=== PATIENT | female | born 1965 | race Caucasian/White ===

== ENCOUNTER 2016-11-24 05:45 | Inpatient (IN) ==
[2016-11-24] MEDS ORDERED: SODIUM CHLORIDE 0.9% 100 ML IV ONE (05:58)
[2016-11-24] MEDS ORDERED: ceFAZolin 1,000 MG VIAL ONE (05:58)
[2016-11-24] MEDS ORDERED: VANCOMYCIN 1,000 MG VIAL ONE (05:58)
[2016-11-24] MEDS ORDERED: VANCOMYCIN INJ 1,000 MG in SODIUM CHLORIDE 0.9% 250 ML IV ONE (06:00)
[2016-11-24] MEDS ORDERED: PANTOPRAZOLE 40 MG TABLET PO ONE (06:23)
[2016-11-24] MEDS ORDERED: DIAZEPAM 5 MG TABLET PO ONE (06:23)
[2016-11-24] MEDS ORDERED: TRANEXAMIC ACID 1,000 MG/10 ML VIAL IV ONE (06:30)
[2016-11-24] MEDS ORDERED: FAMOTIDINE 20 MG TABLET ONE (06:37)
[2016-11-24] MEDS ORDERED: DIAZEPAM 5 MG TABLET ONE (06:37)
--- NOTE | 2016-11-24 07:08 | History and Physical Update ---
History and Physical Update - History and Physical H&P was reviewed, the patient examined and there: are no changes in the patients condition since last H&P was completed.
[2016-11-24] MEDS: LACTATED RINGERS 1,000 ML IV SCH ×2 (07:10→08:01)
[2016-11-24] MEDS ORDERED: PROPOFOL 500 MG/50 ML BOTTLE IV ONE (07:10)
[2016-11-24] MEDS ORDERED: ONDANSETRON 4 MG/2 ML VIAL ONE (07:10)
[2016-11-24] MEDS ORDERED: LIDOCAINE 1% 5 ML VIAL ONE (07:10)
[2016-11-24] MEDS ORDERED: PROPOFOL 200 MG/20 ML VIAL IV ONE (07:10)
[2016-11-24] MEDS ORDERED: methylPREDNISolone ACETATE 40 MG/1 ML VIAL ONE (07:13)
[2016-11-24] MEDS ORDERED: LACTULOSE 20 GM/30 ML UDCUP PO PRN (07:15)
[2016-11-24] MEDS ORDERED: BISACODYL 10 MG SUPP RECTAL PRN (07:15)
[2016-11-24] MEDS ORDERED: HYDROmorphone 2 MG/1 ML VIAL IV PRN (07:15)
[2016-11-24] MEDS ORDERED: PROMETHAZINE 25 MG/1 ML VIAL IM PRN (07:15)
[2016-11-24] MEDS ORDERED: diphenhydrAMINE CAP 25 MG CAPSULE PO PRN (07:15)
[2016-11-24] MEDS ORDERED: ROPIVACAINE 0.5% 30 ML VIAL ONE (09:02)
--- NOTE | 2016-11-24 09:19 | XRay Report ---
Referring Physician: Christopher Bucio Exam: XR knee 2V RT Date: November 24, 2016 at 8:53 AM Reason: Joint replacement right knee Comparison: None Findings: The patient is status post right total knee replacement. Position and alignment appear satisfactory. Surgical drains and surgical skin jaswinder are seen at the anterior aspect of the right knee, and there is soft tissue air, which is likely related to recent surgery. There may be tiny osseous fragments near the lateral tibial plateau and superior patella. Impression: The patient is status post right total knee replacement. Position and alignment appear satisfactory. PROCEDURE INTERPRETED AT [facility] DEPARTMENT OF RADIOLOGY Final Report Signed by: Dr. Phoebe Ji
[2016-11-24] MEDS ORDERED: MIDAZOLAM 2 MG/2 ML VIAL ONE (09:20)
[2016-11-24] MEDS ORDERED: SODIUM CHLORIDE 0.9% 200 ML IV ONE (09:20)
[2016-11-24] MEDS ORDERED: LACTATED RINGERS 1,000 ML IV ONE (09:20)
[2016-11-24] MEDS ORDERED: ACETAMINOPHEN 1,000 MG/100 ML VIAL IV ONE (09:20)
--- NOTE | 2016-11-24 09:37 | Anesthesia ---
Anesthesia Procedures - Nerve Blocks Nerve Block Consent: Requested by surgeon for postoperative pain control Main Anesthetic: spinal anesthesia block Location: PACU Position: supine Type of Block: Right: Femoral Patinet Consent: Patinet consented for above nerve block., Risks and benefits were discussed with patient,including infection,, bleeding,injury to surrounding structures, seizure, temporary nerve, Patient understands and accepts potential risks/benefits and agrees to, proceed. ASA Monitors on: pulse oximetry, EKG, BP cuff, oxygen via Local Anesthetic: Sterile technique with 2% Chlorhexidine / Betadine, Local (1.5 % Lidocaine) used to numb skin, 0.5% Ropivicaine, other Ultrasound Used to: Recognize Landmarks, Visualize Femoral Nerve Nerve Stimulator used: Yes Muscle Twitch: yes Inject slowly in 5cc increments with:: Negative aspitation of heme Patient vitals signs stable throughout procedure.: Patient tolertaed the procedure well with no apparent complications. (3.5 " stimuplex 22G needle used )
[2016-11-24] MEDS: HYDROmorphone PCA 30 MG/30 ML SYRINGE IV SCH (10:44)
[2016-11-24] MEDS: DOCUSATE SODIUM 100 MG CAPSULE PO SCH ×2 (10:48→21:02)
[2016-11-24] MEDS: PANTOPRAZOLE 40 MG TABLET PO SCH (10:48)
--- NOTE | 2016-11-24 11:05 | Anesthesia ---
Anesthesia Post OP - Post Ansesthetic Evaluation Patient seen in post op: Yes Resp: within normal limits CV: within normal limits Mental: within normal limits Temp: within normal limits Ioyo-Gu-Gnrtjrffg: within normal limits Nausea and Vomiting: within normal limits Pain: within normal limits
[2016-11-24 13:07] LABS: Basophils % 0.2 % (0.0-0.8); Eosinophils % 0.2 % (0.00-10.9); Hematocrit 39.3 VOL% (35.7-47.0); Immature Granulocytes % 0.5 %; Immature Granulocytes Absolute 0.05 #; Lymphocytes # 1.1 10*3/uL (1.4-4.0); Lymphocytes % 10.9 % (21.3-54.2); Mean Corpuscular HGB Conc 33.1 GM/DL (32-36); Mean Corpuscular Hemoglobin 30 PG (27-34); Mean Corpuscular Volume 90.1 FL (87-102); Monocytes # 0.2 10*3/uL (0.11-0.8); Monocytes % 2.4 % (1.7-12.7); Neutrophils # 8.7 10*3/uL (1.4-7.4); Neutrophils % 85.8 % (38.7-73.9); Platelet Count 174 10*3/uL (130-400); Red Blood Count 4.36 10*6/uL (3.8-5.5); Red Cell Distribution Width 13.2 % (9.3-17.3); White Blood Count 10.1 10*3/uL (4.5-13.71)
[2016-11-24 13:44] LABS: Calcium 8.5 MG/DL (8.5-10.1); Osmolality,Calculated 291.6 MOS/KG (273-304); Potassium 4.1 MMOL/L (3.5-5.1)
[2016-11-24] MEDS: ceFAZolin 2,000 MG in PREMIX 1 EACH IV SCH ×2 (13:57→21:01)
--- NOTE | 2016-11-24 15:54 | Orthopedic Progress Note ---
Orthopedics - Subjective Interval history: comfortable nvi discussed up in am Exam - Constitutional Vitals: Period Temp Pulse Resp BP Sys/Sun Pulse Ox Last 24 Hr 97.4 F-98.2 F 60-79 14-18 99-142/61-102 18-100 Results - Labs CBC & BMP: 11/24/16 12:54 11/24/16 12:54 Specialty Discharge - Follow Up or Referrals - Discharge Medications No Action Lansoprazole [Prevacid] 15 mg PO DAILY Naproxen Sodium [Aleve] 220 mg PO DIRECTED
[2016-11-24] MEDS: ONDANSETRON 4 MG/2 ML VIAL IV PRN (18:02)
[2016-11-24] MEDS: FONDAPARINUX 2.5 MG/0.5 ML SYRINGE SUBCUT SCH (18:05)
--- NOTE | 2016-11-24 18:15 | Operative Note ---
DATE: 11/24/2016 PREOPERATIVE DIAGNOSIS: OSTEOARTHRITIS, RIGHT KNEE. POSTOPERATIVE DIAGNOSIS: SAME. OPERATIVE PROCEDURES: 1. Right total knee replacement (Attune). 2. Cortisone injection, left knee. SURGEON: Christopher Bucio Jr., MD HELP DESK SUPPORT SPECIALIST: Dr. Francisco ANESTHESIA: Spinal. INDICATIONS: A 51-year-old white female with severe osteoarthritis involving her right knee; also, arthritis to the left side as well. She has maximized conservative treatments through the years inc luding previous arthroscopic procedures as well as injections. Her right knee pain and deformity ar e progressing to the point where she can no longer maintain an active lifestyle, work, etc. She pre sents today for elective right total knee. Under anesthesia she wishes to have her left knee inject ed. DESCRIPTION OF PROCEDURE: The patient taken to the operating room and under spinal anesthetic the l eft knee was injected first with a small amount of Lidocaine and 40 mg of Depo-Medrol to the medial compartment. A band-aid was applied. The right leg was then prepped and draped in the usual steril e manner. The limb was elevated, exsanguinated, and tourniquet inflated to 300 mmHg. A midline inc ision made over the anterior aspect of the right knee. Sharp dissection was carried down through th e skin and subcutaneous tissue, a median parapatellar arthrotomy performed. The knee revealing exte nsive tricompartmental degenerative changes, large osteophyte complexes throughout. Intramedullary alignment guides were used to make the appropriate cuts about the distal femur and proximal tibia. The femur sized to a 5, the tibia to a 4. An 8 mm fixed-bearing spacer selected, the PCL retained. The patella resurfaced with a 35 button. After removal of all the trial components, the knee was i rrigated and all [address]. After the cement hardened the wound was closed i n a standard fashion over two 1/8-inch Hemovac drains; #1 Vicryl was used for the arthrotomy, 2-0 Vi cryl for the subcutaneous layer, and jaswinder for skin. Sterile dressing applied. She was taken to the recovery room in stable condition. TOURNIQUET TIME: 44 minutes. DRAINS: x2. COUNTS: Correct.
[2016-11-24] MEDS: TEMAZEPAM 7.5 MG CAPSULE PO PRN (21:02)
[2016-11-25 05:31] LABS: Basophils % 0.1 % (0.0-0.8); Eosinophils % 0.2 % (0.00-10.9); Hematocrit 36.4 VOL% (35.7-47.0); Hemoglobin 11.9 GM/DL (12.0-16.0); Immature Granulocytes % 0.5 %; Immature Granulocytes Absolute 0.05 #; Lymphocytes # 1.5 10*3/uL (1.4-4.0); Lymphocytes % 15.4 % (21.3-54.2); Mean Corpuscular HGB Conc 32.7 GM/DL (32-36); Mean Corpuscular Hemoglobin 30 PG (27-34); Mean Corpuscular Volume 90.8 FL (87-102); Mean Platelet Volume 9.1 FL (9.6-12.0); Monocytes # 0.7 10*3/uL (0.11-0.8); Monocytes % 7.4 % (1.7-12.7); Neutrophils # 7.7 10*3/uL (1.4-7.4); Neutrophils % 76.4 % (38.7-73.9); Platelet Count 170 10*3/uL (130-400); Red Blood Count 4.01 10*6/uL (3.8-5.5); Red Cell Distribution Width 13.1 % (9.3-17.3)
[2016-11-25 06:09] LABS: Calcium 8.4 MG/DL (8.5-10.1); Osmolality,Calculated 289.6 MOS/KG (273-304); Potassium 4.3 MMOL/L (3.5-5.1)
[2016-11-25] MEDS: PANTOPRAZOLE 40 MG TABLET PO SCH (09:16)
[2016-11-25] MEDS: DOCUSATE SODIUM 100 MG CAPSULE PO SCH ×2 (09:16→21:08)
--- NOTE | 2016-11-25 09:32 | Orthopedic Progress Note ---
Orthopedics - Subjective Interval history: hct ok drain out cont pt Exam - Constitutional Vitals: Period Temp Pulse Resp BP Sys/Sun Pulse Ox Last 24 Hr 96.9 F-97.7 F 62-76 15-20 105-118/70-82 94-100 Results - Labs CBC & BMP: 11/25/16 05:15 11/25/16 05:15 Specialty Discharge - Follow Up or Referrals - Discharge Medications No Action Lansoprazole [Prevacid] 15 mg PO DAILY Naproxen Sodium [Aleve] 220 mg PO DIRECTED
[2016-11-25] MEDS: ONDANSETRON 4 MG/2 ML VIAL IV PRN (11:07)
--- NOTE | 2016-11-25 11:18 | Pathology Report from [facility] ---
ACCESSION # : [id number] PATIENT NAME : Jacqui Walters ORDERING DR : TIAGO MCKEON JR, MD CLINICAL HX: Bilateral knee osteoarthritis POST-OP DX: Same SPECIMEN INFO: Right knee bone and tissue GROSS DESCRIPTION: The speicmen received in formalin labeled "JACQUI WALTERS" is an aggregate of bone, soft tissue and cartilage measuring 14.0 x 5.5 cm. The articular surfaces are focally degenerative with areas of subchondral eburnation seen. Elementary Substitute Teacher sections submitted in one cassette. DIAGNOSIS FOR JACQUI WALTERS: RIGHT KNEE BONE & TISSUE: Gross and microscopic findings consistent with osteoarthritis. SERVICE DATE: 11/24/2016 REPORT DATE: 11/25/2016 PATHOLOGIST: Araseli Espinoza III, M.D. MTDD
[2016-11-25] MEDS: HYDROmorphone PCA 30 MG/30 ML SYRINGE IV SCH (11:33)
[2016-11-25] MEDS: FONDAPARINUX 2.5 MG/0.5 ML SYRINGE SUBCUT SCH (18:38)
[2016-11-25] MEDS: TEMAZEPAM 7.5 MG CAPSULE PO PRN (21:08)
[2016-11-26 06:23] LABS: Basophils % 0.2 % (0.0-0.8); Eosinophils # 0.1 10*3/uL (0.0-0.87); Eosinophils % 0.8 % (0.00-10.9); Hematocrit 35.4 VOL% (35.7-47.0); Hemoglobin 11.6 GM/DL (12.0-16.0); Immature Granulocytes % 0.7 %; Immature Granulocytes Absolute 0.06 #; Lymphocytes # 1.8 10*3/uL (1.4-4.0); Lymphocytes % 21.8 % (21.3-54.2); Mean Corpuscular HGB Conc 32.8 GM/DL (32-36); Mean Corpuscular Hemoglobin 30 PG (27-34); Mean Corpuscular Volume 90.3 FL (87-102); Mean Platelet Volume 9.5 FL (9.6-12.0); Monocytes # 0.8 10*3/uL (0.11-0.8); Monocytes % 9.9 % (1.7-12.7); Neutrophils # 5.5 10*3/uL (1.4-7.4); Neutrophils % 66.6 % (38.7-73.9); Platelet Count 167 10*3/uL (130-400); Red Blood Count 3.92 10*6/uL (3.8-5.5); Red Cell Distribution Width 13.3 % (9.3-17.3); White Blood Count 8.3 10*3/uL (4.5-13.71)
--- NOTE | 2016-11-26 07:32 | Orthopedic Progress Note ---
Orthopedics - Subjective Interval history: She is complaining of some nausea with the Dilaudid. It been stopped and she is tolerating oral analgesics well. Dressing is dry. Right lower extremity is neurovascularly unchanged. Plan: Continue physical therapy. Exam - Constitutional Vitals: Period Temp Pulse Resp BP Sys/Sun Pulse Ox Last 24 Hr 97.5 F-99.8 F 78-99 15-20 112-153/70-88 92-97 Results - Labs CBC & BMP: 11/26/16 05:51 11/25/16 05:15 Specialty Discharge - Follow Up or Referrals - Discharge Medications No Action Lansoprazole [Prevacid] 15 mg PO DAILY Naproxen Sodium [Aleve] 220 mg PO DIRECTED
[2016-11-26] MEDS: DOCUSATE SODIUM 100 MG CAPSULE PO SCH ×2 (10:17→20:32)
[2016-11-26] MEDS: PANTOPRAZOLE 40 MG TABLET PO SCH (10:17)
--- NOTE | 2016-11-26 12:58 | Family Practice Progress Note ---
Family Practice - PN: Subj Interval history: Courtesy consult for Mrs. Walters. I'll see him in the last several days and she's been doing well. She is ambulating the halls and she is been tolerating the pain. Her H&H is stable and has been eating well and voiding well. Not had a bowel movement yet but I'm going to give some milk of magnesia this afternoon if she doesn't have one. Vital signs are completely stable Exam (Progress Note) - Constitutional Vitals: Period Temp Pulse Resp BP Sys/Sun Pulse Ox Last 24 Hr 97.8 F-99.8 F 80-99 15-18 139-153/70-88 92-95 Results - Labs CBC & BMP: 11/26/16 05:51 11/25/16 05:15 Specialty Discharge - Follow Up or Referrals - Discharge Medications No Action Lansoprazole [Prevacid] 15 mg PO DAILY Naproxen Sodium [Aleve] 220 mg PO DIRECTED
[2016-11-26] MEDS: MAGNESIUM HYDROXIDE SUSP 30 ML UDCUP PO PRN (17:24)
[2016-11-26] MEDS: FONDAPARINUX 2.5 MG/0.5 ML SYRINGE SUBCUT SCH (17:25)
[2016-11-26] MEDS: TEMAZEPAM 7.5 MG CAPSULE PO PRN (20:32)
[2016-11-27 05:27] LABS: Basophils % 0.6 % (0.0-0.8); Eosinophils # 0.2 10*3/uL (0.0-0.87); Eosinophils % 2.4 % (0.00-10.9); Hematocrit 35.9 VOL% (35.7-47.0); Hemoglobin 11.4 GM/DL (12.0-16.0); Immature Granulocytes % 0.9 %; Immature Granulocytes Absolute 0.06 #; Lymphocytes # 2.6 10*3/uL (1.4-4.0); Lymphocytes % 37.9 % (21.3-54.2); Mean Corpuscular HGB Conc 31.8 GM/DL (32-36); Mean Corpuscular Hemoglobin 29 PG (27-34); Mean Corpuscular Volume 91.1 FL (87-102); Monocytes # 0.7 10*3/uL (0.11-0.8); Neutrophils # 3.4 10*3/uL (1.4-7.4); Neutrophils % 48.2 % (38.7-73.9); Platelet Count 184 10*3/uL (130-400); Red Blood Count 3.94 10*6/uL (3.8-5.5); Red Cell Distribution Width 13.2 % (9.3-17.3)
--- NOTE | 2016-11-27 07:37 | Orthopedic Progress Note ---
Orthopedics - Subjective Interval history: Ms. Walters continues to improve. She is concerned regarding discharge home because of limited family to take care of her. Dressing clean, dry and intact. Her right lower extremity is neurovascularly unchanged. Plan: Continue physical therapy. Discharge planning. Exam - Constitutional Vitals: Period Temp Pulse Resp BP Sys/Sun Pulse Ox Last 24 Hr 97.2 F-98.9 F 75-91 12-20 118-148/72-86 95-98 Results - Labs CBC & BMP: 11/27/16 05:10 11/25/16 05:15 Specialty Discharge - Follow Up or Referrals - Discharge Medications No Action Lansoprazole [Prevacid] 15 mg PO DAILY Naproxen Sodium [Aleve] 220 mg PO DIRECTED
[2016-11-27] MEDS: DOCUSATE SODIUM 100 MG CAPSULE PO SCH ×2 (08:33→20:45)
[2016-11-27] MEDS: PANTOPRAZOLE 40 MG TABLET PO SCH (08:33)
[2016-11-27] MEDS: MAGNESIUM HYDROXIDE SUSP 30 ML UDCUP PO PRN (10:30)
[2016-11-27] MEDS: FONDAPARINUX 2.5 MG/0.5 ML SYRINGE SUBCUT SCH (18:11)
--- NOTE | 2016-11-28 08:38 | Orthopedic Progress Note ---
Orthopedics - Subjective Interval history: Comfortable doing well. Planning on home discharge tomorrow with outpatient PT she is not interested in home health and home PT. Wound looks good no bleeding and home tomorrow Exam - Constitutional Vitals: Period Temp Pulse Resp BP Sys/Sun Pulse Ox Last 24 Hr 97.6 F-98.6 F 83-98 16-20 112-143/70-82 96-98 Results - Labs CBC & BMP: 11/27/16 05:10 11/25/16 05:15 Specialty Discharge - Follow Up or Referrals - Discharge Medications No Action Lansoprazole [Prevacid] 15 mg PO DAILY Naproxen Sodium [Aleve] 220 mg PO DIRECTED
--- NOTE | 2016-11-28 09:14 | Family Practice Progress Note ---
Family Practice - PN: Subj Interval history: Courtesy consult note on very pleasant lady who recently had knee replacement surgery. She is doing well, in very good spirits, eating well, good bowel movements, no difficulty with breathing and is been walking the halls with her walker. Leg is not swollen and is got good pulses in the dorsalis pedal and posterior tibial sites of the affected leg. Appreciate orthopedics management of this patient Exam (Progress Note) - Constitutional Vitals: Period Temp Pulse Resp BP Sys/Sun Pulse Ox Last 24 Hr 97.6 F-98.6 F 83-98 16-20 112-143/70-82 96-98 Exam: Generally well-developed is alert and oriented and very good spirits HEENT negative Lungs are clear Abdomen soft nondistended Extremities no swelling and wound site dressing in place Results - Labs CBC & BMP: 11/27/16 05:10 11/25/16 05:15 Specialty Discharge - Follow Up or Referrals - Discharge Medications No Action Lansoprazole [Prevacid] 15 mg PO DAILY Naproxen Sodium [Aleve] 220 mg PO DIRECTED
[2016-11-28] MEDS: PANTOPRAZOLE 40 MG TABLET PO SCH (09:42)
[2016-11-28] MEDS: DOCUSATE SODIUM 100 MG CAPSULE PO SCH ×2 (09:42→20:37)
--- NOTE | 2016-11-28 12:46 | Physician Query Form ---
CLICK EDIT DOCUMENT TO SELECT QUERY ANSWER --> OK --> SIGN No Figueroa RN, CCDS Certified Clinical Kiosk Sales Representative W) [phone] (f) [phone] [email or web address] PROVIDERS: Make your selection(s) from the choices in EACH section by typing an "x" and enter comments in the comment section. Please use your independent medical judgment in providing your response. This request does not imply that any particular answer is desired or expected. CLINICAL INDICATORS: (Providers should not edit this section) Height: 5'2 Weight: [address] Light Servicer Supervisor BMI: 40.5 Deburrer Machine Notes: Morbid obesity noted. Pt has had some weight loss through diet/portion control. Patient with osteoarthritis of right knee requiring right total knee replacement If applicable, please provide an associated diagnosis related to the abnormal BMI: BMI of 40 or greater: ( ) Overweight ( ) Obesity ( x ) Morbid//Severe Obesity ( ) Obesity with Alveolar Hypoventilation ( ) Weight Gain ( ) BMI is not significant ( ) Other, please specify: ( ) Clinically unable to determine COMMENTS: Use of terms such as suspected, likely, or probable (associated with a specific diagnosis that is being evaluated, monitored, or treated as if it exists) are acceptable and can be restated in the discharge summary if not ruled out. MTDD
[2016-11-28] MEDS: FONDAPARINUX 2.5 MG/0.5 ML SYRINGE SUBCUT SCH (17:27)
[2016-11-29 07:00] LABS: Calcium 8.6 MG/DL (8.5-10.1); Potassium 4.3 MMOL/L (3.5-5.1)
[2016-11-29] MEDS: FONDAPARINUX 2.5 MG/0.5 ML SYRINGE SUBCUT SCH (09:25)
[2016-11-29] MEDS: DOCUSATE SODIUM 100 MG CAPSULE PO SCH (09:25)
[2016-11-29] MEDS: PANTOPRAZOLE 40 MG TABLET PO SCH (09:25)
--- NOTE | 2016-11-29 09:43 | Orthopedic Progress Note ---
Orthopedics - Subjective Interval history: Doing well ready for discharge. Exam - Constitutional Vitals: Period Temp Pulse Resp BP Sys/Sun Pulse Ox Last 24 Hr 97.9 F-98.9 F 88-116 18-18 111-136/77-87 95-99 Results - Labs CBC & BMP: 11/27/16 05:10 11/29/16 05:47 Specialty Discharge - Follow Up or Referrals Follow up with: Christopher Bucio Jr., MD [Physician] - 12/09/16 12:00 pm - Discharge Medications No Action Lansoprazole [Prevacid] 15 mg PO DAILY Naproxen Sodium [Aleve] 220 mg PO DIRECTED
--- NOTE | 2016-11-29 09:47 | Discharge Summary ---
Hospital Course - Hospital Course Hospital Course: Admitted for elective right total knee. Uncomplicated course. Discharged home Diagnosis - Discharge Diagnosis (1) Osteoarthritis of right knee Status: Acute Specialty Discharge - Follow Up or Referrals Follow up with: Christopher Bucio Jr., MD [Physician] - 12/09/16 12:00 pm - Discharge Medications No Action Lansoprazole [Prevacid] 15 mg PO DAILY Naproxen Sodium [Aleve] 220 mg PO DIRECTED Discharge Plan - Discharge Data Disposition: Disch To Home/Self Care Condition at Discharge: Stable Discharge Diet: advance to your usual diet Activity: ambulate only with your walker, as per physical therapy Hygiene: may shower, keep area(s) dry Weight Bearing at Discharge: weight bear as tolerated Driving: other (not while taking narcotic pain medicine) - Discharge Medications New HYDROcodone/ACETAMIN 7.5-325 [[place] 7.5-325] 1 tablet PO Q4H PRN #25 tablet PRN Reason: Pain Moderate (4-7) Continue Lansoprazole [Prevacid] 15 mg PO DAILY Naproxen Sodium [Aleve] 220 mg PO DIRECTED - Follow Up or Referral Follow Up: Christopher Bucio Jr., MD [Physician] - 12/09/16 12:00 pm - Forms/Instructions Additional Discharge Instructions: Discharge to home, discharge medications [place] when necessary aspirin once a day diet as tolerated activity total knee protocol weightbearing as tolerated home CPM walker. Outpatient PT Monday..., follow-up appointment with ct December 08 or . Exam - Constitutional Vitals: Period Temp Pulse Resp BP Sys/Sun Pulse Ox Last 24 Hr 97.9 F-98.9 F 88-116 18-18 111-136/77-87 95-99 Discharge Results Labs on day of discharge: Labs from last 24 hours 11/29/16 05:47 Sodium 143 Potassium 4.3 Chloride 105 Carbon Dioxide 27 Anion Gap 15.3 H BUN 16 Creatinine 0.80 GFR Calculation 97 BUN/Creatinine Ratio 20.00 Glucose 106 Calculated Osmolality 285.0 Calcium 8.6 DS: Provider Date of admission: 11/24/16 05:45 Primary care physician: Viet Parmar DO Attending physician on admission: Christopher Bucio Jr., MD Consults: 11/24/16 07:15 Consult to Case Mgmt/Social Srvs [CONS] Routine Reason for Case Mgmt/Social Srvs: Rehab Home Health Equipment Consult Comment: Bedside Commode, CPM, Walker Consult to Occupational Therapy [CONS] Routine Reason for Occupational Therapy: Evaluate and Treat Consult Comment: ADL's Consult to Physical Therapy [CONS] Routine Reason for Physical Therapy: Evaluate and Treat Gait Training 11/24/16 07:18 Consult to Physician [CONS] Routine Comment: Consulting Provider: Viet Parmar Consulting Provider Notified: Yes When should Consulting Provider be notified: Now Person Notified: jose leblanc Date Notified: 11/24/16 Time Notified: 10:08 11/24/16 11:34 Consult to Pharmacy [CONS] Routine Reason for Pharmacy Consult: Adjust Meds Renal Funct Discharging clinician: Christopher Bucio Jr.,
[2016-11-29 15:02] VITALS: BP 159/75
== END 2016-11-29 14:05 | disposition home or self-care (01) | DRG 470 ==
LOC: N.SDSINP 05:45 → N.3E 08:05
PROVIDERS: ADMIT Orthopaedic Surgery; ATTEND Orthopaedic Surgery

== ENCOUNTER 2017-11-06 05:43 | Inpatient (IN) ==
[2017-11-06] MEDS ORDERED: ceFAZolin 1,000 MG VIAL ONE (05:48)
[2017-11-06] MEDS ORDERED: VANCOMYCIN 1,000 MG VIAL ONE (05:48)
[2017-11-06] MEDS ORDERED: VANCOMYCIN INJ 1,000 MG in SODIUM CHLORIDE 0.9% 250 ML IV ONE (06:00)
[2017-11-06] MEDS ORDERED: ceFAZolin 1,000 MG in SYRINGE 1 EACH IV ONE (06:00)
[2017-11-06] MEDS: LACTATED RINGERS 1,000 ML IV SCH (06:30)
[2017-11-06] MEDS ORDERED: TRANEXAMIC ACID 1,000 MG/10 ML VIAL IV ONE (06:45)
[2017-11-06] MEDS ORDERED: ONDANSETRON 4 MG/2 ML VIAL IV PRN (07:11)
[2017-11-06] MEDS ORDERED: TEMAZEPAM 7.5 MG CAPSULE PO PRN (07:11)
[2017-11-06] MEDS ORDERED: LACTULOSE 20 GM/30 ML UDCUP PO PRN (07:11)
[2017-11-06] MEDS ORDERED: PROMETHAZINE 25 MG/1 ML VIAL IM PRN (07:11)
[2017-11-06] MEDS ORDERED: HYDROmorphone 2 MG/1 ML VIAL IV PRN (07:11)
[2017-11-06] MEDS ORDERED: NALOXONE 0.4 MG/ML VIAL IV PRN (07:11)
[2017-11-06] MEDS ORDERED: diphenhydrAMINE CAP 25 MG CAPSULE PO PRN (07:11)
[2017-11-06] MEDS ORDERED: BISACODYL 10 MG SUPP RECTAL PRN (07:11)
[2017-11-06] MEDS ORDERED: PANTOPRAZOLE 40 MG VIAL IV ONE (08:12)
[2017-11-06] MEDS ORDERED: ROPIVACAINE 0.5% 30 ML VIAL ONE (09:05)
[2017-11-06] MEDS ORDERED: KETOROLAC 30 MG/1 ML VIAL ONE (10:33)
[2017-11-06] MEDS ORDERED: ACETAMINOPHEN 1,000 MG/100 ML VIAL IV ONE (10:33)
[2017-11-06] MEDS ORDERED: ONDANSETRON 4 MG/2 ML VIAL ONE (10:33)
[2017-11-06] MEDS ORDERED: PROPOFOL 200 MG/20 ML VIAL IV ONE (10:33)
[2017-11-06] MEDS ORDERED: MIDAZOLAM 2 MG/2 ML VIAL ONE (10:33)
[2017-11-06] MEDS ORDERED: fentaNYL 100 MCG/2 ML VIAL ONE (10:33)
[2017-11-06] MEDS: HYDROmorphone PCA 30 MG/30 ML SYRINGE IV SCH (11:36)
[2017-11-06] MEDS: DOCUSATE SODIUM 100 MG CAPSULE PO SCH ×2 (11:38→20:31)
[2017-11-06] MEDS: ceFAZolin 1,000 MG in SYRINGE 1 EACH IV SCH ×2 (15:29→22:51)
[2017-11-06] MEDS: FONDAPARINUX 2.5 MG/0.5 ML SYRINGE SUBCUT SCH (18:05)
[2017-11-06] MEDS: PANTOPRAZOLE 20 MG TABLET PO SCH (20:31)
[2017-11-07] MEDS: LACTATED RINGERS 1,000 ML IV SCH (06:35)
[2017-11-07 06:49] LABS: Basophils % 0.3 % (0.0-0.8); Eosinophils # 0.1 10*3/uL (0.0-0.87); Eosinophils % 1.3 % (0.00-10.9); Hematocrit 34.9 VOL% (35.7-47.0); Hemoglobin 11.4 GM/DL (12.0-16.0); Immature Granulocytes % 0.7 %; Immature Granulocytes Absolute 0.05 #; Lymphocytes # 1.4 10*3/uL (1.4-4.0); Lymphocytes % 18.2 % (21.3-54.2); Mean Corpuscular HGB Conc 32.7 GM/DL (32-36); Mean Corpuscular Hemoglobin 30 PG (27-34); Mean Corpuscular Volume 91.1 FL (87-102); Mean Platelet Volume 9.1 FL (9.6-12.0); Monocytes # 0.7 10*3/uL (0.11-0.8); Monocytes % 9.6 % (1.7-12.7); Neutrophils # 5.4 10*3/uL (1.4-7.4); Neutrophils % 69.9 % (38.7-73.9); Platelet Count 182 T/CUMM (130-400); Red Blood Count 3.83 MC/CUMM (3.8-5.5); White Blood Count 7.7 T/CUMM (4-12)
[2017-11-07 07:17] LABS: Calcium 8.4 MG/DL (8.5-10.1); Osmolality,Calculated 272.8 MOS/KG (273-304); Potassium 3.9 MMOL/L (3.5-5.1)
[2017-11-07] MEDS: HYDROmorphone PCA 30 MG/30 ML SYRINGE IV SCH (09:16)
[2017-11-07] MEDS: PANTOPRAZOLE 20 MG TABLET PO SCH (09:17)
[2017-11-07] MEDS: DOCUSATE SODIUM 100 MG CAPSULE PO SCH ×2 (09:17→21:46)
[2017-11-07] MEDS: FONDAPARINUX 2.5 MG/0.5 ML SYRINGE SUBCUT SCH (18:12)
[2017-11-08] MEDS: LACTATED RINGERS 1,000 ML IV SCH (02:28)
[2017-11-08] MEDS ORDERED: MAGNESIUM HYDROXIDE SUSP 30 ML UDCUP PO ONE (08:34)
[2017-11-08] MEDS: DOCUSATE SODIUM 100 MG CAPSULE PO SCH ×2 (09:02→21:05)
[2017-11-08] MEDS: PANTOPRAZOLE 20 MG TABLET PO SCH (09:02)
[2017-11-08] MEDS: MAGNESIUM HYDROXIDE SUSP 30 ML UDCUP PO PRN (09:02)
[2017-11-08] MEDS: HYDROmorphone PCA 30 MG/30 ML SYRINGE IV SCH (13:43)
[2017-11-08] MEDS: FONDAPARINUX 2.5 MG/0.5 ML SYRINGE SUBCUT SCH (21:06)
[2017-11-09] MEDS: PANTOPRAZOLE 20 MG TABLET PO SCH (08:10)
[2017-11-09] MEDS: DOCUSATE SODIUM 100 MG CAPSULE PO SCH (08:11)
[2017-11-09] MEDS: MAGNESIUM HYDROXIDE SUSP 30 ML UDCUP PO PRN (11:34)
[2017-11-09 12:03] VITALS: BP 114/71
== END 2017-11-09 15:25 | disposition home or self-care (01) | DRG 470 ==
LOC: N.SDSINP 05:43 → N.3E 10:05
PROVIDERS: ADMIT Orthopaedic Surgery; ATTEND Orthopaedic Surgery